=== PATIENT | female | born 1990 | race Caucasian/White ===

== ENCOUNTER 2017-12-02 00:17 | Emergency (ER) | payer SELFPAY ==
[2017-12-02 00:25] VITALS: O2SAT 97
--- NOTE | 2017-12-02 02:09 | C.PDOC ---
History Of Present Illness 26 year old female presents to the ED for evaluation of a dry, non-productive cough which began one week ago. She denies fever, chills. Time Seen by Provider: 12/02/17 02:02 Chief Complaint (Nursing): Shortness Of Breath History Per: Patient History/Exam Limitations: no limitations Onset/Duration Of Symptoms: Other (1 week ) Current Symptoms Are (Timing): Still Present Current Respiratory Medications: See Home Med List Associated Symptoms: denies: Fever, Chills Past Medical History Reviewed: Historical Data, Nursing Documentation, Vital Signs Vital Signs: Last Vital Signs Temp 97.8 F 12/02/17 02:31 Pulse 97 H 12/02/17 02:31 Resp 17 12/02/17 02:31 BP 94/55 L 12/02/17 02:31 Pulse Ox 97 12/02/17 02:31 - Medical History PMH: No Chronic Diseases Surgical History: No Surg Hx Family History: States: Unknown Family Hx - Social History Hx Tobacco Use: No Hx Alcohol Use: Yes Hx Substance Use: No - Immunization History Hx Tetanus Toxoid Vaccination: No Hx Influenza Vaccination: No Hx Pneumococcal Vaccination: No Review Of Systems Constitutional: Negative for: Fever, Chills Respiratory: Positive for: Cough. Negative for: Sputum Physical Exam - Physical Exam Appears: Non-toxic, No Acute Distress Skin: Normal Color, Warm, Dry Head: Atraumatic, Normacephalic Eye(s): bilateral: Normal Inspection Oral Mucosa: Moist Neck: Supple Chest: Symmetrical, No Deformity, Tenderness (digitally and positionally reproducible, to right parasternal area (around T2)) Cardiovascular: Rhythm Regular, No Murmur Respiratory: Normal Breath Sounds, No Rales, No Rhonchi, No Wheezing Extremity: Normal ROM, Capillary Refill (less than 2 seconds ) Neurological/Psych: Oriented x3, Normal Speech, Normal Cognition ED Course And Treatment O2 Sat by Pulse Oximetry: 97 (on RA) Pulse Ox Interpretation: Normal Progress Note: Motrin PO administered. Medical Decision Making Medical Decision Making: dry cough x 1 week + digitally and positionally reproducable R parasternal chest wall discomfort c/ w costochondritis clear lungs Defer further abx for viral vs seasonal bronchitis motrin PRN for costochondral pain. Disposition Doctor Will See Patient In The: Office Counseled Patient/Family Regarding: Studies Performed, Diagnosis - Disposition Referrals: Eliceo Hernandez MD [Medical Doctor] - Disposition: HOME/ ROUTINE Disposition Time: 02:09 Condition: GOOD Additional Instructions: ice packs to the anterior chest wall 1/2 hour per hour, nothing hot motrin 400-600 mg every 6 hours as needed for pain Continue Dayquil/Nyquil for cough/bronchitis symptoms STOP Levaquin antibiotics after 3 day course of 750 mg- adequate treatment is completed follow-up with Dr. Hernandez as needed. Instructions: Costochondritis Forms: [employer] (Urdu) - Clinical Impression Clinical Impression: Costochondritis - Scribe Statement The provider has reviewed the documentation as recorded by the Scribe (Nata Ybarra) Provider Attestation: All medical record entries made by the Scribe were at my direction and personally dictated by me. I have reviewed the chart and agree that the record accurately reflects my personal performance of the history, physical exam, medical decision making, and the department course for this patient. I have also personally directed, reviewed, and agree with the discharge instructions and disposition.
[2017-12-02 02:32] VITALS: BP 94/55; PULSE 97; RESP 17; TEMP 97.8
== END 2017-12-02 02:32 | disposition home or self-care (01) ==
LOC: C.ER 00:17
DX: M94.0 Chondrocostal junction syndrome [Tietze] (principal)